=== PATIENT | male | born 1970 ===

== ENCOUNTER → 2018-11-06 | Outpatient (CLI) | payer OTHER, BC ==
--- NOTE | 2018-11-06 11:03 | RAD ---
EXAM: Right inguinal sonogram. HISTORY: Inguinal mass. TECHNIQUE: Sonographic imaging of the right inguinal region at the site of palpable concern was performed. COMPARISON: None. FINDINGS: There is a small fat-containing inguinal hernia at the site of palpable concern. This is assessed during a Valsalva maneuver. The hernia defect measures 2.2 cm in maximum dimension. IMPRESSION: Small fat-containing right inguinal hernia at the site of palpable concern. Electronically signed by: Marjorie Watkins MD (11/06/2018 11:00 AM) [place] [id number]
== END | disposition home or self-care (01) ==
LOC: US 07:09
DX: K40.90 Unilateral inguinal hernia, without obstruction or gangrene, not specified as recurrent (principal)
CPT/HCPCS: 76881